=== PATIENT | female | born 1950 | race Caucasian/White ===

== ENCOUNTER → 2017-04-24 | Outpatient (CLI) | payer BC ==
[~2017-04-24] MED LIST: ASPCH81X PO; BUPR-79 PO; CALC500C70 PO; MULT-506 PO; OMEG10007 PO
--- NOTE | 2017-04-24 14:42 | MAMMOGRAPHY REPORT ---
BILATERAL DIGITAL SCREENING MAMMOGRAM WITH CAD: 04/24/2017 CLINICAL HISTORY: Routine screening. Patient has no complaints. TECHNIQUE: Bilateral CC and MLO views were obtained. Current study was also evaluated with a Compute r Aided Detection (CAD) system. COMPARISON: Comparison is made to exams dated: 04/20/2016 mammogram, 04/20/2015 mammogram, 03/16/2014 mamm ogram, 03/10/2013 mammogram, 03/07/2012 mammogram, and 03/06/2011 mammogram - [facility] er. BREAST COMPOSITION: There are scattered areas of fibroglandular density in both breasts. FINDINGS: There are stable intramammary lymph nodes bilaterally. No suspicious mass, architectural d istortion or cluster of microcalcifications is seen. IMPRESSION: ACR BI-RADS CATEGORY 1: NEGATIVE There is no mammographic evidence of malignancy. A 1 year screening mammogram is recommended. The pa tient will receive written notification of the results. Approximately 10% of breast cancers are not detected with mammography. A negative mammographic report should not delay biopsy if a clinically suggestive mass is present. Eloise Field M.D. ay/:04/24/2017 13:30:43 Cook Soup: Destiny LECHUGA(Linsey)([place]), [facility] letter sent: Normal 1/2 BI-RADS Code: ACR BI-RADS Category 1: Negative
== END ==
LOC: C.MAMM 09:54
PROVIDERS: ATTEND Family Medicine
DX: Z12.31 Encounter for screening mammogram for malignant neoplasm of breast (principal)

== ENCOUNTER 2022-02-09 07:16 | Observation (INO) ==
--- NOTE | 2022-01-30 11:28 | PAT Medication Instructions ---
Medication Instructions Date of Service January 30, 2022 Home Medications bupropion HCl 300 mg 24 hr tablet, extended release (Wellbutrin XL) 300 mg PO QAM calcium carbonate 600 mg-vitamin D3 5 mcg (200 unit) tablet 1 tab PO QAM cyanocobalamin (vitamin B-12) 2,500 mcg tablet 2,500 mcg PO QAM fiber 1 cap PO QAM multivitamin 1 tab PO QAM omeprazole 20 mg tablet,delayed release 20 mg PO QAM DO NOT take the morning of surgery calcium carbonate 600 mg-vitamin D3 5 mcg (200 unit) tablet 1 tab PO QAM cyanocobalamin (vitamin B-12) 2,500 mcg tablet 2,500 mcg PO QAM fiber 1 cap PO QAM multivitamin 1 tab PO QAM Take morning of surgery With a small sip of water, OTHERWISE NOTHING TO EAT OR DRINK AFTER MIDNIGHT: bupropion HCl 300 mg 24 hr tablet, extended release (Wellbutrin XL) 300 mg PO QAM omeprazole 20 mg tablet,delayed release 20 mg PO QAM Other Notes If you have any questions please call us at [phone] or [phone] or [phone] or [phone]
--- NOTE | 2022-02-01 09:38 | Anesthesiology Consultation ---
Date of Service February 01, 2022 Assessment & Plan (1) Encounter for pre-operative examination: COVID screening: Per assessment on 02/01: No known COVID-19 positive contacts or current COVID-19 related symptoms. Travel screen- returned from travel to [place] (via car) 01/26/22. Patient vaccinated. Preop COVID test scheduled 02/06 ([place]). Awaiting results. Chart Review Chart Review: Acceptable Risk for Surgery and Patient seen in Pre Admission Testing Teaching & Discussion Pre-Anesthesia Teaching/Discussion Notes: Instructed NPO after midnight before surgery,except medications with 15 cc of water. Medication instructions provided according to the PAT guidelines. History Surgery Operation Date: 02/09/22 08:50 Proposed Procedures p Right Total Knee Arthroplasty - Constantino Shankar MD Height/Weight Height: 5 ft 4 in Weight: 73.9 kg Allergies Allergy/AdvReac Type Severity Reaction Status Date / Time Sulfa (Sulfonamide Allergy Intermediate HIVES Unverified 01/27/22 15:11 Antibiotics) doxycycline AdvReac Mild N/V Unverified 01/27/22 15:11 erythromycin base AdvReac Mild N/V Unverified 01/27/22 15:11 Medications Home Medications Medication Instructions Recorded Confirmed Last Taken bupropion HCl 300 mg 24 hr tablet, 300 mg PO QAM 01/27/22 01/27/22 Unknown extended release (Wellbutrin XL) calcium carbonate 600 mg-vitamin 1 tab PO QAM 01/27/22 01/27/22 Unknown D3 5 mcg (200 unit) tablet cyanocobalamin (vitamin B-12) 2,500 mcg PO QAM 01/27/22 01/27/22 Unknown 2,500 mcg tablet fiber 1 cap PO QAM 01/27/22 01/27/22 Unknown multivitamin 1 tab PO QAM 01/27/22 01/27/22 Unknown omeprazole 20 mg tablet,delayed 20 mg PO QAM 01/27/22 01/27/22 Unknown release Past Medical History Medical History Anxiety and depression GERD (gastroesophageal reflux disease) Hx of melanoma of skin Osteoarthritis Restless leg syndrome Exercise / Class Metabolic Activity II 4-5 Yardwork/Stairs/Walk up hill (one FS (no CP, no SOB)) Past Family History Family History Mother Family history of diabetes mellitus Sister Family history of diabetes mellitus Other No family history of adverse response to anesthesia Past Surgical History Surgical History History of arthroscopy KNEE ? SIDE History of cataract surgery R/L History of colonoscopy History of tooth extraction Past Anesthesia History No Hx of Anesthesia Complications and No Family Hx of Anesthesia Complications History of PONV No Hx of PONV and No Hx of Motion Sickness Social History Smoking Status: Never smoker Do You Dip or Chew Tobacco: No Hx Alcohol Use: Yes alcohol intake frequency: holidays/special occasions only Hx Substance Use: No substance use type: does not use Review of Systems Patient denies chest pain, shortness of breath, dyspnea on exertion, fever, chills, cough, wheezing, palpitations. Physical Exam Vital Signs VITALS BP 143/88 P 75 TEMP 98.3 SP02 96%RA RESP 18 PHYSICAL Full cervical extension range of motion. Full TMJ range of motion. TMD 3 finger breaths Mallampati Score 2 Dentition: intact, + bridge (lower right side), several caps (lower front, possible molar) Lungs: clear throughout to auscultation Cardiac: regular rate and rhythm, no murmurs noted Spine: normal Carotid arteries: negative bruit Extremities: no edema Lab Results Anesthesia Preop Results Results Anesthesia Widget: WBC 5.26 K/uL (4.8-10.8) 02/01/22 Hgb 14.0 g/dL (12.0-16.0) 02/01/22 Hct 41.3 % (37-47) 02/01/22 Plt 280 K/uL (130-400) 02/01/22 Na 140 mmol/L (136-145) 02/01/22 K 4.4 mmol/L (3.5-5.1) 02/01/22 Cl 107 mmol/L (98-107) 02/01/22 CO2 28 mmol/L (21-32) 02/01/22 BUN 17 mg/dl (6-23) 02/01/22 Creat 0.79 mg/dl (0.6-1.2) 02/01/22 Glucose Level 91 mg/dl (70-99(Fasting)) 02/01/22 PT 10.7 Seconds (9.0-12.0) 02/01/22 INR 1.0 (0.9-1.1) 02/01/22 HA1c 5.2 % (4.5-5.6) 02/01/22 Urine Color Yellow 02/01/22 Urine Appearance Clear (Clear) 02/01/22 Urine pH 6.5 (4.5-7.5) 02/01/22 Urine Specific [place] 1.020 (1.000-1.030) 02/01/22 Urine Protein Negative (Negative) 02/01/22 Urine Glucose (UA) Negative (Negative) 02/01/22 Urine Ketones Negative (Negative) 02/01/22 Urine Blood Negative (Negative) 02/01/22 Urine Nitrite Negative (Negative) 02/01/22 Urine Bilirubin Negative (Negative) 02/01/22 Urine Urobilinogen Negative (Negative) 02/01/22 Urine Leukocyte Esterase Negative (Negative) 02/01/22 Blood Type B Positive 02/01/22 Antibody Screen NEGATIVE 02/01/22 Testing Electrocardiogram Date: 05/23/21 Normal sinus rhythm at 75 bpm. Possible LAE. LAFB. Nonspecific T wave abnormality. No significant change compared to 05/05/2019 per search marketing analyst review. Patient subsequently had unremarkable stress echo performed 06/09/2021. Stress Test Date: 06/09/21 Type: exercise Negative stress echo/ECG for ischemia at 99% MPHR. Well above average exercise tolerance for age and gender, 163% of predicted, achieving 9.3 METS. LVEF 60%. No LVH. No significant arrhythmia. No chest pain.
--- NOTE | 2022-02-01 16:49 | History & Physical Report ---
Date of Service February 01, 2022 Assessment & Plan (1) Osteoarthritis of right knee: Plan: PRE-OP Diagnosis: Right knee osteoarthritis Planned Procedure: Right total knee arthroplasty Plan: Patient is scheduled to undergo this procedure at the [facility] with 23-hour observation admission on February 09, [address] Constantino Shankar. Risks and complications of procedure such as: Infection, bleeding, pain, scarring, nerve blood vessel damage, weakness, wound problems, stiffness, incomplete relief of symptoms, hardware failure, hardware loosening, wear, fracture, tendon or ligament injury, blood clots, embolism, heart attack or stroke and were explained to the patient at her visit today. Informed consent to perform the procedure was obtained. Patient also understands risks of proceeding with surgical intervention during the COVID-19 pandemic. Currently she is asymptomatic and understands that she will need to be tested prior to surgery. Patient states she has an appointment with anesthesia of hospital later this morning. While there she will obtain a CBC with differential, complete metabolic panel, PT/INR, blood type and screen, urinalysis, urine culture and sensitivity, EKG, hemoglobin A1c and a nasal culture for MRSA. She states that she is scheduled to see her primary care provider Dr. Alicia next week. During today's visit we reviewed the total knee packet. I provided the patient with orders to obtain a walker, raised toilet seat and shower chair. I also provided her with paperwork to obtain a handicap placard for her vehicle. We discussed the use of antibiotics following total joint surgery when she sees her dentist. Patient states that she would like to do in-home physical therapy for the first 2 weeks postoperatively. I also advised the patient that she will be discharged from the hospital with pre scriptions for an opioid analgesic, and an anti-inflammatory. We will have her take 2 baby aspirin daily for the first 30 days postoperatively for blood clot prevention. She may also supplement for additional pain control with extra strength Tylenol. Patient is scheduled to see me for 2-week postoperative follow-up on February 24 at 2 PM. At that appointment I will provide her with an order for outpatient physical therapy along with her rehab protocol. Patient states she will most likely do this therapy at [place] on [facility]. History of Present Illness Chief Complaint: Chief Complaint: Right knee pain Primary Care Provider: Juany Alicia, DO History of Present Illness (including history relevant to procedure): This 71-year-old female presents to the clinic today for preoperative history and physical. Patient reports she has known arthritis in her knee. She has seen other physicians at [facility] as well as [facility] and [facility] in the past. She reports she has had at least 2 or 3 Synvisc injections and she believe she has had corticosteroid injections as well. She has, however, mostly dealt with the pain. Her had a bad experience with knee replacement requiring up to 9 surgeries on his knee for various problems afterwards. She is therefore understandably apprehensive about undergoing knee replacement. She recently was down in [place] when she got up from a chair and felt her knee give out and fell to the ground. She says that since that time she has had worsening of her knee pain. It is medial in location. She feels a clicking inside the knee. Review Of Systems: A 12 point review of systems is warm and is unremarkable except for those things stated in the HPI and past medical history. Past Medical History: Problems: Seborrheic keratoses Milia Major depressive disorder, recurrent episode, moderate Muscle strain of left gluteal region Pain in left hip Notalgia paresthetica Inflamed seborrheic keratosis Elevated glucose Keratosis, seborrheic Skin tag Weight disorder Neck pain Chronic otitis externa Menopause SINUSITIS Melanocytic nevus Allergic rhinitis H/O Malignant melanoma Hot Flashes Lipoma Procedure History Procedure Procedure Date Comments Bunionectomy sinus surgery - Dr Bass wisdom teeth extraction Dilation and curettage Hip tumor removed - benign Knee surgery Excision of melanoma Mammogram X-ray hip left 2 V with pelvis 06/07/2020 - IMPRESSION: Moderate degenerative change of the left and to a lesser extent right hip joint. No change from the prior exam. Mild calcific trochanteric bursitis. X-ray of lumbar spine and sacroiliac joints 11/13/2019 - IMPRESSION: Mild to moderate degenerative changes within the lumbar spine. No acute fractures. Mammogram 04/29/2019 - No mammographic evidence of malignancy. 1 year screening recommended. Mammogram 04/26/2018 - wnl Mammogram 04/24/2017 Trigger thumb 08/2015 - right thumb trigger release procedure Colonoscopy 10/23/2012 - 2011 Allergies and Sensitivities: erythromycin(GI irritation) sulfa drugs(rash in mouth) Social history: Patient states she consumes slightly 2 alcoholic beverages per week. She denies tobacco or illicit drug use. Family history: Diabetes: Mother Heart disease: Unknown Hypothyroidism.: Mother, Sister Prostate cancer..: Father () Current Home Meds: (Last Updated 02/01 08:31) buPROPion (Wellbutrin XL 300 mg/24 hours oral tablet, extended release) 300 mg PO Daily calcium and vitamin D combination (Calcium 600+D 600 mg-200 intl units oral tablet) 1 tab PO bid chondroitin/glucosamine/methylsulfonylmethane (Glucosamine & Chondroitin with MSM) conjugated estrogens topical (Premarin 0.625 mg/g vaginal cream with applicator) 0.5 g vaginal qPM use twice weekly or prn cyanocobalamin (Vitamin B12) 1,000 mcg Daily inulin (Fiber Choice) multivitamin with minerals 1 tab PO Daily omeprazole (omeprazole 20 mg oral delayed release tablet) 20 mg PO qAM Initial Wt: 02/01 73.8 kg 162 lb Allergies Allergy/AdvReac Type Severity Reaction Status Date / Time Sulfa (Sulfonamide Allergy Intermediate HIVES Unverified 01/27/22 15:11 Antibiotics) doxycycline AdvReac Mild N/V Unverified 01/27/22 15:11 erythromycin base AdvReac Mild N/V Unverified 01/27/22 15:11 Home Medications Medication Instructions Recorded Confirmed Type bupropion HCl 300 mg 24 hr tablet, 300 mg PO QAM 01/27/22 01/27/22 History extended release (Wellbutrin XL) calcium carbonate 600 mg-vitamin 1 tab PO QAM 01/27/22 01/27/22 History D3 5 mcg (200 unit) tablet cyanocobalamin (vitamin B-12) 2,500 mcg PO QAM 01/27/22 01/27/22 History 2,500 mcg tablet fiber 1 cap PO QAM 01/27/22 01/27/22 History multivitamin 1 tab PO QAM 01/27/22 01/27/22 History omeprazole 20 mg tablet,delayed 20 mg PO QAM 01/27/22 01/27/22 History release Past Med/Surg History Medical History Anxiety and depression GERD (gastroesophageal reflux disease) Hx of melanoma of skin Osteoarthritis Restless leg syndrome Surgical History History of arthroscopy KNEE ? SIDE History of cataract surgery R/L History of colonoscopy History of tooth extraction Family History Mother Family history of diabetes mellitus Sister Family history of diabetes mellitus Other No family history of adverse response to anesthesia Social History Smoking Status: Never smoker Second Hand Exposure: No; Hx Alcohol Use: Yes Hx Substance Use: No Preferred Language: Burkinan Contact Officer Required: No Beliefs That Will Affect Care: None Current Living Situation: Spouse Feels Safe at Home: Yes Assistive Devices: None Review of Systems All systems reviewed & are unremarkable except as noted in Subjective Physical Exam Physical Exam: Physical Exam: (relevant to the procedure, including heart and lung evaluation) General: Alert and oriented x3 with proper grooming and hygiene Eyes: Pupils are equal and reactive to light with accommodation. Extract movements are intact Throat: Deferred due to COVID-19 precautions Cardiac: Regular rate and rhythm no murmurs or gallops appreciated Lungs: Clear to auscultation throughout with no wheezing, rales or rhonchi Abdomen: Mildly obese, nondistended, nontender with NABS Extremities: Right knee:Range of motion is from 4 degrees of extension to 125 degrees of flexion. Patient has some mild varus malalignment. She experiences medial joint tenderness when knee is palpated in the flexed position. Her patella is Nonmobile due to arthritic change within the patellofemoral joint. There is no varus or valgus laxity with stressing. AP drawer sign is negative. Patient is neurovascularly intact her extremity. Neuro: Cranial nerves II through XII are intact with no motor or sensory deficit Skin: Normal in appearance with no open skin areas or discharge Results & Data ([facility]) Diagnostic Findings Studies (relevant to the procedure): X-rays done today, of the right knee and long leg alignment films. These demonstrate patient to be in varus malalignment with the weightbearing axis passing through the medial tibial plateau. She has [id number] arthritis in the medial aspect of the knee. Large osteophytes are noted off the medial femoral condyle and smaller osteophytes off the medial tibial plateau and the patella.
[~2022-02-09 07:16] MED LIST changes: +ACETAMINOPHEN 500 MG TAB PO SCH; -ASPCH81X PO; +BUPIVACAINE 0.25% 30 ML VIAL ONE; +BUPIVACAINE 0.5 % 5 MG/1 ML PF 10ML VIAL ONE; -BUPR-79 PO; -CALC500C70 PO; +FAMOTIDINE 20 MG TAB PO SCH; +LR 500ML BOLUS, THEN 15ML/HR IV SCH; +LR 60ML/HR IV SCH; -MULT-506 PO; -OMEG10007 PO; +ROPIVACAINE 0.5% HCL/PF 150 MG, BUPIVACAINE 0.75% MPF 20 ML, EPINEPHrine 0.15 MG, Ketor... INFIL SCH; +Scopolamine 1 MG TDSY TD SCH; +TRANEXAMIC ACID 1,000 MG **IV Intra-op IV SCH; +TRANEXAMIC ACID 1,000 MG **IV Pre-op IV SCH; +ceFAZolin 2000MG 2,000 MG/15 ML SYR IV SCH; +dexAMETHasone 4 MG TAB PO SCH; +traMADol HCL 50 MG TABLET PO SCH
--- NOTE | 2022-02-09 08:46 | History & Physical Bridge Note ---
Date of Service February 09, 2022 History & Physical Bridge Note I have examined the patient, reviewed the History & Physical and in the interval since the performance of the History & Physical I have noted the following changes of clinical significance: no changes noted
[2022-02-09] MEDS ORDERED: ATROPINE SULFATE 0.1 MG/ML 10ML SYR IV PRN (09:01)
[2022-02-09] MEDS ORDERED: fentaNYL citrate 100 MCG/2 ML VIAL IV PRN (09:01)
[2022-02-09] MEDS ORDERED: ePHEDrine sulfate 50 MG/ML AMP IV PRN (09:01)
[2022-02-09] MEDS ORDERED: ONDANSETRON INJ 2 MG/ML 2 ML VIAL IV PRN ×2 (09:01→11:20)
[2022-02-09] MEDS ORDERED: ORTHO JOINT ANESTHETIC ONE (09:11)
--- NOTE | 2022-02-09 11:12 | Operative Report ---
Post Operative Report Pre & Post Diagnosis Operation Date: 02/09/22 09:10 Pre-Op Diagnosis: Right Knee Osteoarthritis Post-Op Diagnosis: Right Knee Osteoarthritis I identified the patient and participated in the time-out.: Yes Procedure Operation Date: 02/09/22 09:10 Actual Procedures p Right Total Knee Arthroplasty(Right) - Constantino Shankar MD Surgeon Constantino Shankar MD Environmental Health Officer Jigna Oropeza MD and HERNÁN Ellis PA-C. Estimated Blood Loss 100 Findings Consistent with Post-Op Diagnosis Specimens Bone and soft tissue contents right knee Anesthesia Type General Regional Complications none Disposition Disposition: Recovery Room Indications 71-year-old female with right knee arthritis refractory to conservative management. X-rays demonstrate [id number] disease in the medial compartment and tricompartmental osteophyte formation. I had a long discussion with her about the risks benefits surgery, alternatives to surgery, expected outcomes. After reviewing all these she elected proceed with surgery. All questions were answered. Informed consent was signed. Description of Procedure Patient was identified in the preoperative holding area where the surgical site, right knee, was marked. Patient was brought back to the operating room, placed on the operating room table, and IV sedation was administered. All bony prominences were padded. Perioperative antibiotics and tranexamic acid were administered. Exam under anesthesia was performed. This demonstrated the patient have about 7 degree flexion contracture. She flexed up to 125 degrees. Stable to varus and valgus in full extension and 30 degrees of flexion. The surgical site was prepped and draped in the normal sterile fashion. Prior to incision a multidisciplinary timeout was called. All in the room were in agreement. We began by exsanguinating the limb with an Esmarch bandage. Tourniquet was inflated to 250 mmHg. A 14 cm long incision was made over the anterior aspect of the knee. I dissected through the subcutaneous tissues to the level of the fascia. Full-thickness flaps were raised above the fascia. A median parapatellar arthrotomy was made. Half the fat pad was excised. A medial release was performed with Bovie electrocautery on the proximal tibia. Synovitis in the knee and suprapatellar pouch was removed. The patella was then everted and held with 2 towel clips. The thickness of the patella was measured at 22 mm. Patellar resection was performed. Caliper showed the patella thickness now to be 14 mm. A size 38 trial was placed and had a great fit. The 3 drill holes were placed then the trial button was placed. The patellar thickness was now 22 mm which I was very happy with. The patellar trial was then removed, the patella was everted and the knee was flexed up. Osteophytes were removed from the femoral condyles and intercondylar notch. The ACL and PCL were excised. Intramedullary drill guide was drilled into the femur. Distal femoral cutting guide was placed set at 5 degrees of valgus to resect 9 mm off the distal femur. Distal femoral resection was made without difficulty. The tibia was then exposed. The lateral meniscus was sharply excised. The tibial cutting jig was positioned to resect 9 mm off the less involved compartment. The jig was then pinned in position and the tibial cut was made. We then brought the knee into full extension. Lamina spreaders were placed. The medial meniscus was excised. The extension block was then placed for 5 mm thickness poly. This gave us full extension and excellent stability to varus and valgus. Next the knee was flexed up and the femoral sizing guide was placed. The patient sized to a size 6 narrow femur. The 3 degree external rotation jig was used to create 2 holes in the distal femur. The jig was removed and the holes were compared to Whitesides axis and the epicondylar axis. We were happy with the rotation, and therefore placed a size three 4-in-1 cutting jig and pinned this into position. Our 4 cuts were made. The cutting jig was removed. The flexion block was then placed with the knee held at 90 degrees. There was excellent stability to varus and valgus at 90 degrees with no gapping medially or laterally. Next the box cutting jig was placed on the distal femur. The box cut was made and the femoral trial was impacted into position. The tibia was sized to a 5 for a fixed bearing all polyethylene component. The tibial tray was positioned in external rotation on the cut tibial surface and the knee was brought through a full range of motion. We then pinned the tibial tray into position and used the intramedullary drill followed by the keel punch. The trial polyethylene was then placed and the knee was brought through a full range of motion. I was very happy with the stability through a full range of motion, and the patellar tracking was excellent. Next the trial components were removed. I then injected the posterior capsule and periosteum with the periarticular injection cocktail. The bone cuts were then irrigated and dried while the cement was mixed on the back table. The femoral component was cemented on first. Excess cement was removed. A lap sponge was placed over the femoral component for protection, then the tibia was subluxated anteriorly. The all polyethylene tibial component was then cemented in place. Again excess cement was removed. The knee was brought into full extension and held there until the cement cured. The patella was cemented and clamped. Dilute Betadine solution was then allowed to irrigate the knee while the cement cured. Once the cement was fully cured, the tourniquet was let down and meticulous hemostasis was ensured. The wound was irrigated out with copious amounts normal saline. The knee was brought through a full range of motion and we were very happy with the patella tracking and the stability. We then began to close. Interrupted 0 Vicryl suture was used to repair the patellar retinaculum in [id number] fashion. The quadriceps and patellar tendons were run with #1 Ethibond. The deep dermal layer was closed with interrupted 2-0 Vicryl. Dermabond and Zipline was used for the skin. A compressive dressing was placed. Patient's sedation was lifted and was transferred to recovery room in stable condition. Summary of implants: Depuy Attune Posterior Stabilized Cemented Femur, size 6 narrow Attune All-polyethylene tibial component, posterior stabilized 5 mm thickness, size 5 Attune patella medialized dome, size 38 2 batches of simplex high viscosity bone cement Postoperative course: Patient will be admitted to the floor for pain control and monitoring. Weightbearing as tolerated with a walker with no knee range of motion for 48 hours. Aspirin for DVT prophylaxis. I attest to the content of the Intraoperative Record and any orders documented therein. Any exceptions are noted below.
[2022-02-09] MEDS ORDERED: bisacodyL 10 MG SUPP PR PRN (11:20)
[2022-02-09] MEDS ORDERED: METOCLOPRAMIDE HCL INJ 5 MG/ML 2 ML VIAL IV PRN (11:20)
[2022-02-09] MEDS ORDERED: NALOXONE HCL 0.4 MG/1 ML VIAL/CARP IV PRN (11:20)
[2022-02-09] MEDS ORDERED: MAGNESIUM HYDROXIDE SUSP 30 ML UDC PO PRN (11:20)
[2022-02-09] MEDS ORDERED: ALUMINUM/MAGNESIUM SUSP 30 ML UDC PO PRN (11:20)
[2022-02-09] MEDS ORDERED: diphenhydrAMINE 50 MG/ML VIAL IV PRN (11:20)
--- NOTE | 2022-02-09 11:20 | Operative Report ---
Post Operative Report Pre & Post Diagnosis Operation Date: 02/09/22 09:10 Pre-Op Diagnosis: Right Knee Osteoarthritis Post-Op Diagnosis: Right Knee Osteoarthritis I identified the patient and participated in the time-out.: Yes Procedure Operation Date: 02/09/22 09:10 Actual Procedures p Right Total Knee Arthroplasty(Right) - Constantino Shankar MD Surgeon Constantino Shankar MD Operating Room Manager Jigna Oropeza MD and HERNÁN Ellis PA-C. Estimated Blood Loss 100 Findings Consistent with Post-Op Diagnosis Specimens none Description of Procedure I was present during the entire case assisting with positioning, prepping, draping, wound retraction, wound closure, dressing and immobilizer placement. Fellow also present. I served as an extra set of hands during the case. Please see Dr. Shankar procedure note for specifics. I attest to the content of the Intraoperative Record and any orders documented therein. Any exceptions are noted below.
--- NOTE | 2022-02-09 11:22 | Operative Report ---
Post Operative Report Pre & Post Diagnosis Operation Date: 02/09/22 09:10 Pre-Op Diagnosis: Right Knee Osteoarthritis Post-Op Diagnosis: Right Knee Osteoarthritis I identified the patient and participated in the time-out.: Yes Procedure Operation Date: 02/09/22 09:10 Actual Procedures p Right Total Knee Arthroplasty(Right) - Constantino Shankar MD Surgeon Florina Shankar Mixing And Dispensing Supervisor Jigna Oropeza MD and HERNÁN Ellis PA-C. Estimated Blood Loss 100 Findings Consistent with Post-Op Diagnosis Consistent with post op diagnosis. Specimens No specimens Description of Procedure I participated in prepping dressing and assisted Dr. Shankar during the procedure. Please see Dr. Shnakar note I attest to the content of the Intraoperative Record and any orders documented therein. Any exceptions are noted below.
--- NOTE | 2022-02-09 11:48 | XRay Report ---
XR knee RT 1 or 2V routine CLINICAL HISTORY: Postoperative evaluation. COMPARISON: Right knee radiographs February 01, 2022. FINDINGS: Alignment of the right knee arthroplasty is anatomic. Polyethylene tibial component is pre sent. There is no periprosthetic fracture or unexpected radiopaque foreign body. IMPRESSION: Expected findings following right knee arthroplasty. ACT 112: Negative or not required by law. Electronically signed by: Ronen Merchant M.D. 02/09/2022 11:46 AM
--- NOTE | 2022-02-09 12:25 | Anesthesiology Progress Note ---
Date of Service February 09, 2022 Anesthesia Post Procedure Vital Signs Vital Signs: Temp Pulse Pulse Resp BP Pulse Ox 02/09/22 12:15 77 16 120/96 93 02/09/22 12:05 36.2 C L 79 18 122/97 95 02/09/22 11:55 77 15 144/91 H 93 02/09/22 11:45 78 16 139/88 94 02/09/22 11:35 84 22 128/79 95 02/09/22 11:25 84 15 124/82 94 02/09/22 11:19 36.2 C L 85 14 130/77 95 02/09/22 07:46 36.9 C 67 16 168/106 H 99 Pain Intensity Right Knee: Pain Intensity: 3 Transfer of Care Handoff Completed per policy Notes Mental Status: alert / awake / arousable and participated in evaluation Nausea / Vomiting: adequately controlled Pain: adequately controlled Airway Patency, RR, SpO2: stable & adequate BP & HR: stable & adequate Hydration State: stable & adequate Neuraxial Anesthesia: was administered and sensory block is resolving Anesthetic Complications: no major complications apparent and Pt Satisfied with anesthetic care
[2022-02-09] MEDS: SODIUM CHLORIDE 0.9% 1000ML 1,000 ML IV SCH ×2 (13:22→22:27)
[2022-02-09] MEDS: KETOROLAC TROMETHAMINE 15 MG/ML VIAL IV SCH ×2 (13:57→19:53)
[2022-02-09] MEDS: oxyCODONE HCL IR 5 MG TAB (IMMEDIATE RELEASE) PO PRN (14:49)
[2022-02-09] MEDS: ACETAMINOPHEN 500 MG TAB PO SCH ×2 (14:50→22:25)
[2022-02-09] MEDS: Scopolamine CHECK PATCH PLACEMENT SCH ×2 (14:50→23:09)
[2022-02-09] MEDS: ceFAZolin 2000MG 2,000 MG/15 ML SYR IV SCH (17:27)
[2022-02-09] MEDS ORDERED: TRANEXAMIC ACID / 0.7% NACL 1,000 MG/100 ML BAG IV SCH (17:30)
[2022-02-09] MEDS: DOCUSATE SODIUM 100 MG CAP PO SCH (20:24)
[2022-02-09] MEDS ORDERED: SENNA 8.6 MG TAB PO SCH (21:00)
[2022-02-10] MEDS: ceFAZolin 2000MG 2,000 MG/15 ML SYR IV SCH (02:01)
[2022-02-10] MEDS: KETOROLAC TROMETHAMINE 15 MG/ML VIAL IV SCH ×2 (02:02→07:42)
[2022-02-10] MEDS: ACETAMINOPHEN 500 MG TAB PO SCH (06:24)
[2022-02-10] MEDS: Scopolamine CHECK PATCH PLACEMENT SCH (07:41)
[2022-02-10] MEDS: DOCUSATE SODIUM 100 MG CAP PO SCH (07:43)
[2022-02-10] MEDS: oxyCODONE HCL IR 5 MG TAB (IMMEDIATE RELEASE) PO PRN (07:53)
[2022-02-10] MEDS ORDERED: dexAMETHasone 4 MG TAB PO SCH (08:00)
[2022-02-10 08:56] LABS: Hematocrit (blood only) 36.7 % (37-47); Hemoglobin 12.2 g/dL (12.0-16.0); Mean Corpuscular Hgb Conc 33.2 g/dL (32-36); Mean Corpuscular Volume 93.1 fL (80-100); Mean Platelet Volume 9.9 fL (7.4-10.4); Platelet Count 257 K/uL (130-400); RDW Coefficient of Variation 12.5 % (11.5-14.5); RDW Standard Deviation 42.5 fL (36.4-46.3); Red Blood Count 3.94 M/uL (4.2-5.4)
[2022-02-10] MEDS ORDERED: ASPIRIN 81 MG ECTAB PO SCH (09:00)
[2022-02-10] MEDS ORDERED: buPROPion XL 300 MG TABCR PO SCH (09:00)
[2022-02-10] MEDS ORDERED: CYANOCOBALAMIN (B-12) 2,500 MCG TABLET SL SCH (09:00)
[2022-02-10] MEDS ORDERED: CALCIUM POLYCARBOPHIL 625MG TAB PO SCH (09:00)
[2022-02-10] MEDS ORDERED: PANTOprazole 40 MG TAB PO SCH (09:00)
[2022-02-10] MEDS ORDERED: CALCIUM 600MG + VIT D 400 IU TAB PO SCH (09:00)
[2022-02-10] MEDS ORDERED: MULTIVITAMIN TAB PO SCH (09:00)
[2022-02-10] MEDS ORDERED: NON-FORMULARY MEDICATION (Multivitamin Tablet) PO SCH (09:00)
[2022-02-10 09:14] LABS: BUN Creatinine Ratio 19.5 (10-20); Calcium 8.7 mg/dl (8.5-10.1); Creatinine Clr Calc Pharmacy 66.1 ml/min; Est GFR (African American) 91.3 ml/min; Est GFR (Non-African American) 78.8 ml/min; Potassium 3.9 mmol/L (3.5-5.1)
--- NOTE | 2022-02-10 11:24 | Orthopedic Progress Note ---
Date of Service February 10, 2022 Assessment & Plan (1) S/P total knee replacement using cement: Plan: PT/OT Weightbearing as tolerated with immobilizer for the first 48 hours and walker assistance Pain control with p.o. medication DVT prophylaxis with baby aspirin twice daily and OLIVE stockings Ice with easy wrap Keep Silverlon dressing in place Plan is for discharge home after lunch today with in-home physical therapy using [facility] Follow-up with [facility] orthopedics as previously scheduled With questions contact the clinic at [phone] Admission and Anticipated Discharge Date Admission Date: February 09, 2022 Subjective This 71-year-old female is day 1 status post right total knee arthroplasty. Patient states she is doing very well. States that her pain is well controlled with the pain medication she was given. She is anxious to be discharged from the hospital today. She states she is already set up with [facility] for her in-home rehab. Currently she denies any chest pain, shortness of breath, fever, chills, sweats, lethargy, numbness or tingling in the right lower extremity. She also denies fever, chills, sweats or weakness. Review of Systems Review of Systems: All systems reviewed & are unremarkable except as noted in Subjective Physical Exam Physical Exam: Right knee: Patient is able to perform an active straight leg raise test and actively dorsi and plantarflex her foot. She is able to detect light sensation to touch over the pad of her digits and foot. She is able to actively flex her knee to 70 degrees in extension to 0 degrees. Silverlon is clean dry and intact. Patient does have some mild atrophy of the quad musculature. Currently quad strength is 2-3 out of 5. Peripheral pulses 2+. Capillary fill is less than 2 seconds. Patient is neurovascularly intact in the right lower extremity. Results & Data ([facility]) Vital Signs (Past 12 Hours) Vital Signs Temp Pulse Resp BP Pulse Ox 02/10/22 07:12 37.0 C 71 14 142/78 H 97 02/10/22 02:15 37.1 C 79 17 143/88 H 95 Diagnostic Findings Laboratory Results WBC 10.80 K/uL (4.8-10.8) 02/10/22 07:59 RBC 3.94 M/uL (4.2-5.4) L 02/10/22 07:59 Hgb 12.2 g/dL (12.0-16.0) 02/10/22 07:59 Hct 36.7 % (37-47) L 02/10/22 07:59 MCV 93.1 fL (80-100) 02/10/22 07:59 MCH 31.0 pg (25-34) 02/10/22 07:59 MCHC 33.2 g/dL (32-36) 02/10/22 07:59 RDW Std Deviation 42.5 fL (36.4-46.3) 02/10/22 07:59 RDW Coeff of Yuko 12.5 % (11.5-14.5) 02/10/22 07:59 Plt Count 257 K/uL (130-400) 02/10/22 07:59 MPV 9.9 fL (7.4-10.4) 02/10/22 07:59 Sodium 142 mmol/L (136-145) 02/10/22 07:59 Potassium 3.9 mmol/L (3.5-5.1) 02/10/22 07:59 Chloride 112 mmol/L (98-107) H 02/10/22 07:59 Carbon Dioxide 24 mmol/L (21-32) 02/10/22 07:59 Anion Gap 6 (3-11) 02/10/22 07:59 BUN 15 mg/dl (6-23) 02/10/22 07:59 Creatinine 0.77 mg/dl (0.6-1.2) 02/10/22 07:59 Est Cr Clr Drug Dosing 66.1 ml/min 02/10/22 07:59 Est GFR ( Amer) 91.3 ml/min 02/10/22 07:59 Est GFR (Non-Af Amer) 78.8 ml/min 02/10/22 07:59 BUN/Creatinine Ratio 19.5 (10-20) 02/10/22 07:59 Glucose 99 mg/dl (70-99(Fasting)) 02/10/22 07:59 Calcium 8.7 mg/dl (8.5-10.1) 02/10/22 07:59 Hepatitis C Ab (EIA) NON-REACTIVE (NON-REACTIVE) 02/09/22 14:06 Hep C Ab Signal/Cutoff 0.01 (<1.00) 02/09/22 14:06 SARS-CoV-2, RNA, NAAT NEGATIVE (NEGATIVE) 02/09/22 07:47 Impressions Knee X-Ray 02/09/22 11:23 XR knee RT 1 or 2V routine CLINICAL HISTORY: Postoperative evaluation. COMPARISON: Right knee radiographs February 01, 2022. FINDINGS: Alignment of the right knee arthroplasty is anatomic. Polyethylene tibial component is present. There is no periprosthetic fracture or unexpected radiopaque foreign body. IMPRESSION: Expected findings following right knee arthroplasty. ACT 112: Negative or not required by law. Electronically signed by: Ronen Merchant M.D. 02/09/2022 11:46 AM
--- NOTE | 2022-02-10 11:29 | Discharge Summary ---
Date of Service February 10, 2022 Admission HPI Per Admitting Provider History of Present Illness (including history relevant to procedure): This 71-year-old female presents to the clinic today for preoperative history and physical. Patient reports she has known arthritis in her knee. She has seen other physicians at [facility] as well as [place] and [facility] in the past. She reports she has had at least 2 or 3 Synvisc injections and she believe she has had corticosteroid injections as well. She has, however, mostly dealt with the pain. Her had a bad experience with knee replacement requiring up to 9 surgeries on his knee for various problems afterwards. She is therefore understandably apprehensive about undergoing knee replacement. She recently was down in [place] when she got up from a chair and felt her knee give out and fell to the ground. She says that since that time she has had worsening of her knee pain. It is medial in location. She feels a clicking inside the knee. Review Of Systems: A 12 point review of systems is warm and is unremarkable except for those things stated in the HPI and past medical history. Past Medical History: Problems: Seborrheic keratoses Milia Major depressive disorder, recurrent episode, moderate Muscle strain of left gluteal region Pain in left hip Notalgia paresthetica Inflamed seborrheic keratosis Elevated glucose Keratosis, seborrheic Skin tag Weight disorder Neck pain Chronic otitis externa Menopause SINUSITIS Melanocytic nevus Allergic rhinitis H/O Malignant melanoma Hot Flashes Lipoma Procedure History Procedure Procedure Date Comments Bunionectomy sinus surgery - Dr Bass wisdom teeth extraction Dilation and curettage Hip tumor removed - benign Knee surgery Excision of melanoma Mammogram X-ray hip left 2 V with pelvis 06/07/2020 - IMPRESSION: Moderate degenerative change of the left and to a lesser extent right hip joint. No change from the prior exam. Mild calcific trochanteric bursitis. X-ray of lumbar spine and sacroiliac joints 11/13/2019 - IMPRESSION: Mild to moderate degenerative changes within the lumbar spine. No acute fractures. Mammogram 04/29/2019 - No mammographic evidence of malignancy. 1 year screening recommended. Mammogram 04/26/2018 - wnl Mammogram 04/24/2017 Trigger thumb 08/2015 - right thumb trigger release procedure Colonoscopy 10/23/2012 - 2011 Allergies and Sensitivities: erythromycin(GI irritation) sulfa drugs(rash in mouth) Social history: Patient states she consumes slightly 2 alcoholic beverages per week. She denies tobacco or illicit drug use. Family history: Diabetes: Mother Heart disease: Unknown Hypothyroidism.: Mother, Sister Prostate cancer..: Father () Current Home Meds: (Last Updated 02/01 08:31) buPROPion (Wellbutrin XL 300 mg/24 hours oral tablet, extended release) 300 mg PO Daily calcium and vitamin D combination (Calcium 600+D 600 mg-200 intl units oral tablet) 1 tab PO bid chondroitin/glucosamine/methylsulfonylmethane (Glucosamine & Chondroitin with MSM) conjugated estrogens topical (Premarin 0.625 mg/g vaginal cream with applicator) 0.5 g vaginal qPM use twice weekly or prn cyanocobalamin (Vitamin B12) 1,000 mcg Daily inulin (Fiber Choice) multivitamin with minerals 1 tab PO Daily omeprazole (omeprazole 20 mg oral delayed release tablet) 20 mg PO qAM Initial Wt: 02/01 73.8 kg 162 lb Admission Exam Per Admitting Provider Physical Exam: (relevant to the procedure, including heart and lung evaluation) General: Alert and oriented x3 with proper grooming and hygiene Eyes: Pupils are equal and reactive to light with accommodation. Extract movements are intact Throat: Deferred due to COVID-19 precautions Cardiac: Regular rate and rhythm no murmurs or gallops appreciated Lungs: Clear to auscultation throughout with no wheezing, rales or rhonchi Abdomen: Mildly obese, nondistended, nontender with NABS Extremities: Right knee:Range of motion is from 4 degrees of extension to 125 degrees of flexion. Patient has some mild varus malalignment. She experiences medial joint tenderness when knee is palpated in the flexed position. Her patella is Nonmobile due to arthritic change within the patellofemoral joint. There is no varus or valgus laxity with stressing. AP drawer sign is negative. Patient is neurovascularly intact her extremity. Neuro: Cranial nerves II through XII are intact with no motor or sensory deficit Skin: Normal in appearance with no open skin areas or discharge Principal Diagnosis Right knee osteoarthritis Discharge Exam Right knee: Patient is able to perform an active straight leg raise test and actively dorsi and plantarflex her foot. She is able to detect light sensation to touch over the pad of her digits and foot. She is able to actively flex her knee to 70 degrees in extension to 0 degrees. Silverlon is clean dry and intact. Patient does have some mild atrophy of the quad musculature. Currently quad strength is 2-3 out of 5. Peripheral pulses 2+. Capillary fill is less than 2 seconds. Patient is neurovascularly intact in the right lower extremity. Discharge Data Allergies Allergy/AdvReac Type Severity Reaction Status Date / Time Sulfa (Sulfonamide Allergy Intermediate HIVES Verified 02/09/22 07:39 Antibiotics) doxycycline AdvReac Mild N/V Verified 02/09/22 07:39 erythromycin base AdvReac Mild N/V Verified 02/09/22 07:39 Procedures Performed Operation Date: 02/09/22 09:10 Actual Procedures p Right Total Knee Arthroplasty(Right) - Constantino Shankar MD Ordered Studies 02/09/22 05:00 US - OR guided needle placemen Routine Hospital Course (1) S/P total knee replacement using cement: Patient had an uneventful overnight stay following right total knee arthroplasty.She is very pleased with the condition she is in currently. She is anxious to be discharged home today. She has already been established with [facility] for her in-home physical therapy. PT/OT Weightbearing as tolerated with immobilizer for the first 48 hours and walker assistance Pain control with p.o. medication DVT prophylaxis with baby aspirin twice daily and OLIVE stockings Ice with easy wrap Keep Silverlon dressing in place Plan is for discharge home after lunch today with in-home physical therapy using [facility] Follow-up with [facility] orthopedics as previously scheduled With questions contact the clinic at [phone] Total Time Total Time Spent Total Time Spent (In Minutes): 20 minutes Discharge Plan Discharge Items Patient Disposition: Home - Home Health Services Reason For Visit: Right Knee Osteoarthritis Discharge Diagnosis: Right knee Osteoarthritis Activity: Resume your previous activity Lifting: None Bathing: Keep incision dry Sexual Activity: Wait until after follow-up appointment Exercise/Sports: None Driving/Machine Use: No driving until cleared by admissions specialist Weightbearing: Right weightbearing Weightbearing Comment: As tolerated with immobilizer for the first 48 hours and walker assistance Non-emergency contact: Surgeon Call non-emergency contact if: you have any medication questions, your pain is not controlled, your rectal temperature is above 100.4, your temperature is above 101.5, your wound has increased redness, your wound has increased drainage and your wound pain has increased Follow-up/Referrals: Juany Alicia DO [Primary Care Provider] - Diet: Regular Addtl Attending Provider Instructions: Post-operative Instructions Dear Patient and Family/Friends, Before you are discharged from the hospital, it is important to know what to expect when you get home after surgery. To that end, we have created this sheet of discharge instructions which covers many commonly asked questions. Make sure you go through this sheet in its entirety with your nurse before you are discharged. Please note that we will go over the specifics of your surgery and recovery when you return for your first post-operative visit. Sincerely, Dr. Shankar Medications 1. Oxycodone 5 mg: take 1-2 tabs every 4-6 hours as needed for pain control. A prescription for this medication will be sent to your pharmacy. 2. Diclofenac Sodium 75 mg: take 1 tab twice daily for 30 days post operatively for pain and inflammation relief. A prescription for this will be sent to your pharmacy with 1 refill. 3. Aspirin 81 mg: take 1 tab twice daily for 30 days post operatively for blood clot prevention. Please purchase. 4. Extra Strength Tylenol 500 mg: take 2 tabs every 6-8 hours for additional pain relief. Please purchase. Pain Expect to be in a fair amount of pain after surgery. Remember, our goal is not to eliminate your pain, but to make it tolerable. It is a good idea to stay ahead of your pain by taking the medications you were prescribed once you get home. Typically, the pain starts improving 3-7 days after surgery. You should start weaning off the narcotic pain medication (oxycodone, hydrocodone, hydromorphone, morphine) as soon as your pain improves. Please call our office if your pain is not adequately controlled. Ice Ice your operative site at least 5 times a day for 15-30 minutes at a time. Make sure you have a thin cloth between the ice or cooling unit and your skin to prevent brothers bite. This is especially important if you received a nerve block. Continue icing your operative site for the first 5-7 days after surgery, then as needed. Diet/Nausea/Vomiting Start by drinking clear liquids and eating crackers. If you can tolerate this, then you may resume your normal diet. If you feel nauseated or vomit, take Zofran/ondansetron (if prescribed). Please call our office if you have intractable nausea or vomiting, or, if after hours, you may go to the Emergency Room for help. Constipation Constipation is a common side effect of narcotic pain medication. If you have not had a bowel movement within 2 days after surgery, we recommend purchasing an over the counter laxative such as Milk of Magnesia, Dulcolax, or Miralax from a local pharmacy, and taking it as instructed. Call our clinic if any questions. Slings and Braces If you were placed in a sling or brace, it must be worn at all times, including sleep. You may remove your sling or brace for physical therapy, home exercises, and showering. The length of time you will be in your brace and range of motion restrictions depends on what surgery you had; these details will be reviewed at your first post-operative appointment. Nerve block The anesthesia team sometimes places a nerve block to help with post-operative pain control. This results in significant numbness and inability to move the extremity. The nerve block usually wears off in 8-12 hours, but sometimes can last up to 24 hours. Please call our office if you are still unable to move your extremity after 24 hours, unless you received a pain pump to take home. Nerve blocks typically wear off quickly, so start taking pain medication as soon as you start feeling soreness near your surgical site. Weight bearing and Range of Motion. Do not bear any weight through your operative extremity immediately after surgery. If you had upper extremity surgery, do not lift anything with that arm. If you are in a knee brace, keep it locked in place until your follow-up. We will discuss your weight bearing, range of motion, and lifting restrictions in detail at your first post-operative appointment. Continuous Passive Motion (CPM) Machine If you were prescribed a CPM machine, it will start after your first post- operative appointment, at which time we will give you instructions on the range of motion settings and duration of treatment Physical therapy You will be given a prescription for physical therapy or occupational therapy at your first post-operative appointment. Typically, patients start therapy within 1 week of surgery Wound care and showering We will inspect your wound at your first post-operative visit, and may do a dressing change at that time. Most patients will be in a water-proof dressing that is removed 14 days after surgery. It is normal to see some dried blood on the dressing. Do not remove your dressing, paper strips or sutures yourself unless you are given permission. Showering is allowed the day after surgery. Do not scrub or remove any dressings. The wound should not be submerged underwater (i.e. in a bathtub or pool) until 4 weeks after surgery OLIVE stockings If you were given white stockings, these are to be worn at all times except to shower (on both legs) for the first 2 weeks after surgery. Driving You may not drive while taking narcotic pain medication or while in a cast, splint, sling or brace. You, the patient, need to make the final determination about when you are safe to drive, however, the earliest you may consider driving after surgery is below: Hand/Wrist/Elbow Surgery: 3 days Shoulder Surgery: 2 weeks Hip,/Knee/Ankle Surgery: 4 weeks Fracture repair: 6 weeks Return to Work Your return to work depends on what surgery was done and what type of work you do. Please bring any paperwork your employer needs completed to your first post-operative visit. Also, bring a description of your job duties, as this helps us to understand what risks you may face at work. Travel Avoid long distance travel (greater than 1 hour) in airplanes and cars for the first 6 weeks after surgery. If you must travel, you need to have a Doppler ultrasound done before you travel to rule out a blood clot in your legs. Follow-up You should have a follow-up appointment already scheduled 1-2 days after surgery. If not, please contact our office to make this appointment before you leave the hospital. When to call the office It is normal to have swelling and bruising in the limb that was operated on. This will improve with time. It is also normal to have fevers for the first 2 days after surgery. Reasons you should call your doctor include: Uncontrolled pain; Nausea, vomiting, or constipation that does not improve with medication; Fevers over 101.5, chills, sweats; Drainage or bleeding from the wound; Foul odor; Spreading areas of redness; Any other concerns Pending Studies at Discharge: No Stand-Alone Forms: [facility] Medications and DC Order Prescriptions: New oxycodone 5 mg tablet 5 mg PO Q4H Qty: 28 RF: 0 diclofenac sodium 75 mg tablet,delayed release (DR/EC) 75 mg PO BID 30 Days Qty: 60 RF: 1 Continued multivitamin Tablet 1 tab PO QAM RF: 0 calcium carbonate-vitamin D3 600 mg-5 mcg (200 unit) Tablet 1 tab PO QAM RF: 0 fiber Capsule 1 cap PO QAM RF: 0 bupropion HCl [Wellbutrin XL] 300 mg Tablet Extended Release 24 Hr 300 mg PO QAM RF: 0 omeprazole 20 mg Tablet,Delayed Release (Dr/Ec) 20 mg PO QAM RF: 0 cyanocobalamin (vitamin B-12) 2,500 mcg Tablet 2,500 mcg PO QAM RF: 0 Discharge Orders: Discharge Order (Routine); Ordered 02/10/22 Ordered By: Tino Ellis Admission Data Admit Date/Time: 02/09/22 11:20 Attending Provider: Constantino Shankar Admit Provider: Constantino Shankar Primary Care Provider: Juany Alicia Other Providers: [facility]
== END 2022-02-10 13:43 | disposition home health service (06) ==
LOC: ASU 07:16 → 3E 07:16